=== PATIENT | male | born 1990 | race African-American/Black ===

== ENCOUNTER 2019-11-05 00:09 | Emergency (ER) | payer OTHER | END 2019-11-05 01:28 | disposition left against medical advice (07) | LOC: ER 00:09 | DX: Z53.21 Procedure and treatment not carried out due to patient leaving prior to being seen by health care provider (principal) ==

== ENCOUNTER 2019-11-07 15:07 | Emergency (ER) | payer OTHER ==
[~2019-11-07] VITALS: Ht 180.3 cm; Wt 85.0 kg
[2019-11-07] MEDS ORDERED: IBUPROFEN 600MG TABLET PO ONE (17:30)
[2019-11-07 19:12] VITALS: BP 128/84
== END 2019-11-07 19:14 | disposition home or self-care (01) ==
LOC: ER 15:15
DX: S62.344A Nondisplaced fracture of base of fourth metacarpal bone, right hand, initial encounter for closed fracture (principal); Z98.890 Other specified postprocedural states; Y04.0XXA Assault by unarmed brawl or fight, initial encounter; Y93.89 Activity, other specified; Y92.018 Other place in single-family (private) house as the place of occurrence of the external cause
CPT/HCPCS: 73130; 99283